=== PATIENT | female | born 1965 | race Caucasian/White ===

== ENCOUNTER 2017-05-09 09:23 | Day surgery (SDC) | payer MEDICAID ==
[~2017-05-09] VITALS: Ht 160 cm; Wt 86.2 kg
[2017-05-09] MEDS ORDERED: BLOOD GLUCOSE MONITORING 1 DEV DEV FS ONE (10:07)
[2017-05-09] MEDS ORDERED: LIDOCAINE 2% 100 MG/5 ML UJET TP ONE (10:49)
[2017-05-09] MEDS ORDERED: GEMF600T5 PO (11:13)
[2017-05-09] MEDS ORDERED: CHOL100013 PO (11:13)
[2017-05-09] MEDS ORDERED: PRAZ1CAP PO (11:13)
[2017-05-09] MEDS ORDERED: DULO20EC PO (11:13)
[2017-05-09] MEDS ORDERED: LOSA25TA22 PO (11:13)
[2017-05-09] MEDS ORDERED: METF-430 PO (11:13)
[2017-05-09] MEDS ORDERED: ASPI81TA28 PO (11:13)
[2017-05-09] MEDS ORDERED: LORA-476 PO (11:13)
== END 2017-05-09 11:49 | disposition home or self-care (01) ==
LOC: MDS 09:23
PROVIDERS: ATTEND Internal Medicine Gastroenterology
DX: Z12.11 Encounter for screening for malignant neoplasm of colon (principal); I10 Essential (primary) hypertension; E11.9 Type 2 diabetes mellitus without complications; E78.00 Pure hypercholesterolemia, unspecified; F32.9 Major depressive disorder, single episode, unspecified; F41.9 Anxiety disorder, unspecified; Z98.890 Other specified postprocedural states
CPT/HCPCS: 82948